=== PATIENT | male | born 1985 | race American Indian/Alaskan Native ===

== ENCOUNTER 2018-06-17 22:05 | Emergency (ER) | payer SELFPAY ==
[2018-06-17 22:54] VITALS: BP 138/88
[2018-06-18] MEDS ORDERED: BOOSTRIX IM ONE (02:12)
--- NOTE | 2018-06-18 02:27 | Emergency Department Report ---
- General Chief Complaint: Wound/Laceration Stated Complaint: CUT LEFT THUMB AT WORK Time Seen by Provider: 06/18/18 01:56 Source: patient Mode of arrival: Ambulatory Limitations: No Limitations - History of Present Illness Initial Comments: Pt is a 32 yo male who presents to the ED with c/o cutting his left thumb nail with a knife while at work. He states he was slicing vegetables when he accident cut himself. He states there was some bleeding which has resolved. He states he has not had a tetanus immunization in about 13 years. He is able to move the digit. He denies any numbness or weakness. - Related Data Allergies Allergy/AdvReac Type Severity Reaction Status Date / Time No Known Allergies Allergy Unverified 06/17/18 22:14 ED Review of Systems ROS: Stated complaint: CUT LEFT THUMB AT WORK Other details as noted in HPI Comment: All other systems reviewed and negative ED Past Medical Hx - Past Medical History Hx Asthma: Yes Additional medical history: Bronchitis - Surgical History Past Surgical History?: Yes Additional Surgical History: Right hand - Social History Smoking Status: Never Smoker Substance Use Type: None ED Physical Exam - General Limitations: No Limitations General appearance: alert, in no apparent distress - Head Head exam: Present: atraumatic, normocephalic - Eye Eye exam: Present: normal appearance - ENT ENT exam: Present: mucous membranes moist - Skin Skin exam: Present: other (1 cm horizontal laceration through the distal half of the left thumb nail, no nail bed involvement, nail is intact at nail bed, no laceration of the thumb, FROM of the left thumb without difficulty, no active bleeding, neurovascularly intact) ED Course Vital Signs 06/17/18 06/18/18 22:52 02:30 Temperature 97.7 F Pulse Rate 94 H 84 Respiratory 18 16 Rate Blood Pressure 138/88 O2 Sat by Pulse 98 98 Oximetry ED Medical Decision Making - Medical Decision Making Pt is a 32 yo male who presents to the ED with c/o cutting his left thumb nail with a knife while at work. He states he was slicing vegetables when he accident cut himself. He states there was some bleeding which has resolved. He states he has not had a tetanus immunization in about 13 years. He is able to move the digit. He denies any numbness or weakness. Pt has 1 cm horizontal laceration through the distal half of the left thumb nail, no nail bed involvement, FROM of the thumb, neurovascularly intact, no active bleeding. Area cleaned with betadine and irrigated with normal saline, sterile dressing applied. pt given tetanus immunization. Advised pt to be seen by his PCP in the next 2-3 days for wound recheck. Discussed with pt to return to the ED for any signs of infection or any new or worsening symptoms. Critical care attestation.: If time is entered above; I have spent that time in minutes in the direct care of this critically ill patient, excluding procedure time. ED Disposition Clinical Impression: Nail avulsion Disposition: - TO HOME OR SELFCARE Is pt being admited?: No Does the pt Need Aspirin: No Condition: Stable Instructions: Skin Avulsion (ED) Additional Instructions: Follow up with your primary care doctor in the next 2-3 days to recheck wound. Return to the emergency room for any new or worsening symptoms. Referrals: PRIMARY CARE, [Primary Care Provider] - 2-3 Days Forms: Accompanied Note, Work/School Release Form(ED) Time of Disposition: 02:26 Print Language: GHANAIAN
== END 2018-06-18 02:30 | disposition home or self-care (01) ==
LOC: ED 22:05
DX: S61.102A Unspecified open wound of left thumb with damage to nail, initial encounter (principal); J45.909 Unspecified asthma, uncomplicated; W26.0XXA Contact with knife, initial encounter; Y93.89 Activity, other specified; Y92.69 Other specified industrial and construction area as the place of occurrence of the external cause; Y99.8 Other external cause status
CPT/HCPCS: 90471; 90715